=== PATIENT | female | born 1985 | race Caucasian/White ===

== ENCOUNTER 2017-01-14 22:28 | Emergency (ER) | payer MEDICAID ==
[~2017-01-14] VITALS: Ht 157.5 cm; Wt 63.0 kg
[~2017-01-14 22:28] MED LIST: CIPR-9 PO; PRED20 PO; PROM1SUP8 PR
[2017-01-14 22:32] VITALS: BP 145/81; PULSE 91; RESP 16; TEMP 98.5; O2SAT 98
[2017-01-14] MEDS ORDERED: ZOLO100T PO (22:40)
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
[2017-01-14] MEDS ORDERED: ACETAMINOPHEN/HYDROcodone 325 MG/5 MG TAB PO ONE (22:45)
[2017-01-14] MEDS ORDERED: HYDR-3533 PO (22:56)
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
[2017-01-14] MEDS ORDERED: birth control (23:01)
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
== END 2017-01-15 00:23 | disposition home or self-care (01) ==
LOC: NEPK 22:28
DX: S63.91XA Sprain of unspecified part of right wrist and hand, initial encounter (principal); S63.256A Unspecified dislocation of right little finger, initial encounter; W19.XXXA Unspecified fall, initial encounter; Y93.43 Activity, gymnastics
CPT/HCPCS: 29125; 73130

== ENCOUNTER 2017-03-07 14:44 | Emergency (ER) | payer MEDICAID ==
[~2017-03-07] VITALS: Ht 157.5 cm; Wt 63.5 kg
[~2017-03-07 14:44] MED LIST changes: -CIPR-9 PO; +HYDR-3533 PO; -PRED20 PO; -PROM1SUP8 PR; +ZOLO100T PO; +birth control
[2017-03-07 14:45] VITALS: BP 122/77; PULSE 77; RESP 14; TEMP 98.4; O2SAT 98
== END 2017-03-07 17:01 | disposition left against medical advice (07) ==
LOC: NED 14:44
DX: Z53.9 Procedure and treatment not carried out, unspecified reason (principal)
CPT/HCPCS: 99281

== ENCOUNTER 2017-06-10 18:56 | Emergency (ER) | payer MEDICAID ==
[2017-06-10 19:01] VITALS: O2SAT 100
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
[2017-06-10 19:15] VITALS: BP 130/77; PULSE 85; RESP 16; O2SAT 100
[2017-06-10] MEDS ORDERED: SODIUM CHLORIDE 0.9% FLUSH 10 ML FLUSH IVF PRN (19:15)
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
[2017-06-10] MEDS ORDERED: ADAL1INJ SQ (19:36)
[2017-06-10] MEDS ORDERED: FOLI400T PO (19:36)
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
[2017-06-10 19:55] LABS: ALCOHOL LESS THAN 3 MG/DL (0-5); AUTOMATED NEUTROPHIL # 6.8 TH/MM3 (1.8-7.7); BASOPHIL # 0.1 TH/MM3 (0-0.2); BASOPHIL % 0.5 % (0.0-2.0); EOSINOPHIL # 0.1 TH/MM3 (0-0.4); EOSINOPHIL % 0.7 % (0.0-4.0); HEMATOCRIT 41.4 % (35.0-46.0); LYMPH % 40.7 % (9.0-44.0); LYMPHOCYTE # 5.2 TH/MM3 (1.0-4.8); MEAN CELL VOLUME 89.8 FL (80.0-100.0); MEAN CORPUSCULAR HEMOGLOBIN 30.9 PG (27.0-34.0); MEAN CORPUSCULAR HGB CONC 34.4 % (32.0-36.0); MONO % 5.5 % (0.0-8.0); NEUT % 52.6 % (16.0-70.0); PLATELET COUNT 245 TH/MM3 (150-450); RED BLOOD COUNT 4.61 MIL/MM3 (4.00-5.30); RED CELL DISTRIBUTION WIDTH 14.4 % (11.6-17.2); WHITE BLOOD COUNT 12.9 TH/MM3 (4.0-11.0)
[2017-06-10 20:01] LABS: HEMO FLAGS AUTO DIFF
[2017-06-10 20:44] LABS: I-STAT POTASSIUM 3.4 MMOL/L (3.5-4.9); I-STAT SODIUM 142 MMOL/L (138-146)
[2017-06-10 21:17] LABS: PLATELET ESTIMATE SMEAR NORMAL (NORMAL); PLATELET MORPHOLOGY NORMAL (NORMAL); SCAN/DIFF AUTO DIFF CONFIRMED
[2017-06-10 21:18] LABS: APTT (PATIENT) 21.1 SEC (24.3-30.1); PROTHROMBIN TIME - PATIENT 10.7 SEC (9.8-11.6)
[2017-06-10] MEDS ORDERED: MORPHINE SULFATE 4 MG/ML INJ IV PUSH ONE ×2 (21:30)
[2017-06-10] MEDS ORDERED: ONDANSETRON HCL 4 MG/2 ML VIAL IV PUSH ONE (21:30)
--- NOTE | 2017-06-10 21:31 | EKG ---
Date Performed: 06/10/2017 Time Performed: 19:41:31 PTAGE: 31 years EKG: Sinus rhythm WITH SHORT ND INTERVAL BORDERLINE ECG PREVIOUS TRACING : 03/10/2015 15.08 Compared to prior tracing no significant change DOCTOR: Jaci Zamora Interpretating Date/Time 06/10/2017 21:29:49
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
[2017-06-10 22:07] VITALS: BP 122/82; PULSE 80; RESP 16; O2SAT 99
[2017-06-10 22:30] LABS: BACTERIA, URINE MANY /hpf; BLOOD, URINE MOD (NEG); COMMENT (UR) CULTURE INDICATED; CULTURE IF INDICATED CULTURE INDICATED; GLUCOSE,URINE NEG (NEG); HYALINE CAST, URINE 16 /lpf (RARE); KETONE, URINE TRACE mg/dL (NEG); MUCUS URINE MANY /lpf (OCC); NITRITE,URINE POS (NEG); SQUAMOUS EPITHELIAL CELL URINE 10 /hpf (0-5); URINE COLOR YELLOW (YELLW/STRAW)
[2017-06-10] MEDS ORDERED: MACR100C2 PO (22:58)
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
[2017-06-11] MEDS ORDERED: NITROFURANTOIN MONOHYD MACROCR 100 MG CAP PO ONE
== END 2017-06-11 00:19 | disposition home or self-care (01) ==
LOC: NEPE 18:56
DX: S02.2XXA Fracture of nasal bones, initial encounter for closed fracture (principal); S01.21XA Laceration without foreign body of nose, initial encounter; S20.20XA Contusion of thorax, unspecified, initial encounter; S00.10XA Contusion of unspecified eyelid and periocular area, initial encounter; N39.0 Urinary tract infection, site not specified; B96.20 Unspecified Escherichia coli [E. coli] as the cause of diseases classified elsewhere; J32.9 Chronic sinusitis, unspecified; M47.9 Spondylosis, unspecified; Y04.2XXA Assault by strike against or bumped into by another person, initial encounter
CPT/HCPCS: 12011; 70450; 70486; 71010; 72125; 72170; 73100; 73120; 80307; 81001; 82435; 82565; 82947; 84132; 84295; 84520; 84703; 85025; 85610; 85730; 86850; 86900; 86901; 87077; 87086; 87186; 93005; 96374; 96375; 99285; 99291; J2270; J2405; G0390